=== PATIENT | female | born 1970 | race Caucasian/White ===

== ENCOUNTER 2017-11-29 14:07 | Outpatient (CLI) | payer OTHER ==
--- NOTE | 2017-11-30 16:33 | Mammography Report ---
DATE OF SERVICE: 11/29/2017 DIGITAL SCREENING MAMMOGRAM: 11/29/2017 CLINICAL INDICATION: A 46-year-old with history of late childbearing, for screening. TECHNIQUE: Routine CC and MLO projections were obtained of the breasts. Bilateral laterally exaggerated craniocaudal views. COMPARISON: 06/2012, 03/2011. FINDINGS: The breasts again demonstrate heterogeneously dense fibroglandular parenchyma bilaterally. Punctate, typically benign calcifications are present. No suspicious masses, clustered microcalcifications, or regions of architectural distortion are identified. IMPRESSION: BENIGN FINDINGS. RECOMMENDATION: ROUTINE ANNUAL SCREENING UNLESS OTHERWISE CLINICALLY INDICATED. BIRADS CATEGORY 2-BENIGN FINDINGS. STANDARD QUALIFYING STATEMENTS: 1. This examination was reviewed with the aid of Computer-Aided Detection (CAD). 2. A negative or benign imaging report should not delay biopsy if clinically suspicious findings are present. Consider surgical consultation if warranted. More than 5% of cancers are not identified by imaging. 3. Dense breasts may obscure an underlying neoplasm. TD: 11/30/2017 16:33
== END 2017-11-29 14:08 | disposition home or self-care (01) ==
LOC: DI 14:07
PROVIDERS: ATTEND Family Medicine
DX: Z12.31 Encounter for screening mammogram for malignant neoplasm of breast (principal)
CPT/HCPCS: 77067

== ENCOUNTER 2019-06-12 10:56 | Outpatient (CLI) | payer OTHER ==
--- NOTE | 2019-06-12 13:24 | XRAY Report ---
Reason: PAIN 1ST MP JTS R >>> L Procedure Date: 06/12/2019 Accession Number: [id number] / [id number] Procedure: XR - Foot 3 View BILAT CPT Code: FULL RESULT: EXAMS: 1. Right Foot Radiography 2. Left Foot Radiography EXAM DATE: 06/12/2019 11:21 AM. CLINICAL HISTORY: PAIN 1ST MP JTS R L. COMPARISON: None. TECHNIQUE: 3 views each foot. FINDINGS: Right: Bones: Normal. No fractures or bone lesions. Joints: Normal. No subluxations. Soft Tissues: Normal. No soft tissue swelling. Left: Bones: Normal. No fractures or bone lesions. Joints: Normal. No subluxations. Soft Tissues: Normal. No soft tissue swelling. IMPRESSION: Normal bilateral feet radiography. RADIA
== END 2019-06-12 10:57 | disposition home or self-care (01) ==
LOC: DI 10:56
PROVIDERS: ATTEND Podiatrist
DX: M25.572 Pain in left ankle and joints of left foot (principal); M25.571 Pain in right ankle and joints of right foot

== ENCOUNTER 2021-10-25 09:13 | Day surgery (SDC) | payer OTHER ==
[2021-10-25] MEDS ORDERED: LACTATED RINGERS 1,000 ML IV ONE ×2 (09:30→10:22)
--- NOTE | 2021-10-25 09:56 | ANESTHESIA ---
Pre-Anesthesia VS, & Labs - Diagnosis screening - Procedure colonoscopy Vital Signs: Temp Pulse Resp BP Pulse Ox 37 C 90 16 105/68 100 10/25/21 09:30 10/25/21 09:30 10/25/21 09:30 10/25/21 09:30 10/25/21 09:30 Height: 5 ft 2 in Weight (kg): 53.1 kg Body Mass Index: 21.4 BMI Classification: Healthy weight - NPO >8 hours - Is Patient ?: No Home Medications and Allergies Home Medications: Ambulatory Orders No Known Home Medications 10/24/21 No Known Home Medications 10/24/21 Allergies/Adverse Reactions: Allergies Allergy/AdvReac Type Severity Reaction Status Date / Time Penicillins Allergy Unknown Verified 10/25/21 09:51 Anes History & Medical History - Anesthetic History Anesthesia Complications: reports: No previous complications - Medical History Cardiovascular: reports: None Pulmonary: reports: None Gastrointestinal: reports: None Urinary: reports: None Musculoskeletal: reports: None Endocrine/Autoimmune: reports: None Skin: reports: None History of Cancer?: No - Surgical History Gynecologic: reports: section, Hysterectomy Exam General: Alert, Oriented x3 Dental: WNL Mouth Opening: Greater than 4 Fingerbreadths Neck Mobility: Normal Mallampati classification: I Respiratory: Lungs clear Cardiovascular: Regular rate Plan Anesthesia Type: Total IV Consent for Procedure(s) Verified and Reviewed: Yes Code Status: Attempt Resuscitation ASA classification: 1-Healthy patient Is this case an emergency?: No
--- NOTE | 2021-10-25 10:28 | ANESTHESIA POST OP EVALUATION ---
Anesthesia Post Eval - Post Anesthesia Eval Vitals: Last Vital Signs Temp 37 C 10/25/21 09:30 Pulse 90 10/25/21 09:30 Resp 16 10/25/21 09:30 BP 105/68 10/25/21 09:30 Pulse Ox 100 10/25/21 09:30 CV Function Including HR & BP: Stable Pain Control: Satisfactory Nausea & Vomiting: Negative Mental Status: Baseline Respiratory Status: Airway Patent Hydration Status: Satisfactory Anesthesia Complications: None
[2021-10-25 10:58] VITALS: BP 101/88
== END 2021-10-25 09:14 | disposition home or self-care (01) ==
LOC: SDS 09:13
PROVIDERS: ATTEND Surgery
DX: Z12.11 Encounter for screening for malignant neoplasm of colon (principal); K64.8 Other hemorrhoids; K64.4 Residual hemorrhoidal skin tags
CPT/HCPCS: 45378; J7120

== ENCOUNTER 2022-07-31 15:34 | Outpatient (CLI) | payer OTHER ==
--- NOTE | 2022-08-03 10:22 | Mammography Report ---
BILATERAL DIGITAL SCREENING MAMMOGRAM 3D/2D: 07/31/2022 CLINICAL: Routine screening. Comparison is made to exams dated: 11/29/2017 mammogram and 07/22/2012 mammogram - [facility]. Both breasts are heterogeneously dense, which may obscure small masses (category c / 51-75% glandula r tissue). No significant masses, calcifications, or other findings are seen in either breast. There has been no significant interval change. IMPRESSION: NEGATIVE There is no mammographic evidence of malignancy. A 1 year screening mammogram is recommended. Based on the Tyrer Cuzick model (a risk assessment model) the patients lifetime risk is 11.8% and he r 10 year risk is 2.9%. According to the ACR, ACS, and NCCN guidelines, an annual breast MRI exam tati ng with mammogram is recommended if the patients lifetime risk is 20% or greater. This exam was interpreted at Station ID: [id number]. NOTE: For mammograms, a report in lay terms will be sent to the patient. Approximately 15% of breast malignancies will not be visualized mammographically. In the management of a palpable breast mass, a negative mammogram must not discourage biopsy of a clinically suspicious lesion. Electronically Signed By: Leon [email or web address]:08/02/2022 10:32:12 ACR BI-RADS Category 1: Negative 3341F PARENCHYMAL PATTERN: (D) - The breast(s) demonstrate(s) heterogeneously dense fibroglandular parenchy ma. BI-RADS CATEGORY: (1) - 1 RECOMMENDATION: (ANNUAL) - Recommend routine annual screening mammography. [id number] 1 year screening LATERALITY: (B)
== END 2022-07-31 15:35 | disposition home or self-care (01) ==
LOC: DI 15:34
DX: Z12.31 Encounter for screening mammogram for malignant neoplasm of breast (principal)

== ENCOUNTER 2023-11-20 08:49 | Outpatient (CLI) | payer OTHER ==
--- NOTE | 2023-11-21 11:01 | Mammography Report ---
BILATERAL DIGITAL SCREENING MAMMOGRAM 3D/2D: 11/20/2023 CLINICAL: Routine screening. Comparison is made to exams dated: 07/31/2022 mammogram - [facility], 04/14/2021 [facility] mogram - [facility], and 11/29/2017 mammogram - [facility]. Both breasts are heterogeneously dense, which may obscure small masses (category c / 51-75% glandular tissue). No significant masses, calcifications, or other findings are seen in either breast. There has been no significant interval change. IMPRESSION: NEGATIVE There is no mammographic evidence of malignancy. A 1 year screening mammogram is recommended. Based on the Tyrer Cuzick model (a risk assessment model) the patient's lifetime risk is 11.7% and he r 10 year risk is 3.0%. According to the ACR, ACS, and NCCN guidelines, an annual breast MRI exam tati ng with mammogram is recommended if the patients lifetime risk is 20% or greater. This exam was interpreted at Station ID: [id number]. NOTE: For mammograms, a report in lay terms will be sent to the patient. Approximately 15% of breast malignancies will not be visualized mammographically. In the management of a palpable breast mass, a negative mammogram must not discourage biopsy of a clinically suspicious lesion. Electronically Signed By: Lotus Bauer M.D., PH.D [email or web address]:11/20/2023 23:42:52 letter sent: No_Letter ACR BI-RADS Category 1: Negative 3341F PARENCHYMAL PATTERN: (D) - The breast(s) demonstrate(s) heterogeneously dense fibroglandular angela combs. BI-RADS CATEGORY: (1) - 1 Mammogram [id number] 1 year screening LATERALITY: (B)
== END 2023-11-20 08:50 | disposition home or self-care (01) ==
LOC: DI 08:49
DX: Z12.31 Encounter for screening mammogram for malignant neoplasm of breast (principal); R92.333 Mammographic heterogeneous density, bilateral breasts